=== PATIENT | male | born 1940 | race Caucasian/White ===

== ENCOUNTER → 2023-06-06 10:09 | Outpatient (REF) | payer MEDICARE, BC, SELFPAY ==
[2023-06-06 11:57] LABS: % Basophils 1.8 % (0-2); % Eosinophils 7.9 % (0-6); % Immature Granulocytes 0.3 % (0-0.5); % Lymphocytes 26.7 % (20.5-51.1); % Monocytes 11.1 % (1.7-9.3); % Neutrophils 52.2 % (42.2-75.2); Absolute Basophils 0.1 10^3/uL (0-0.2); Absolute Eosinophils 0.5 10^3/uL (0-0.7); Absolute Lymphocytes 1.7 10^3/uL (1.2-3.4); Absolute Monocytes 0.7 10^3/uL (0.1-0.6); Absolute Neutrophils 3.3 10^3/uL (1.4-6.5); Hematocrit 40.9 % (39.0-52.0); Hemoglobin 14.3 g/dL (13.0-18.0); Mean Corpuscular Hgb 35.7 pg (27.0-31.0); Nucleated Red Blood Cells % 0 % (-); Platelet Count 168 10^3/uL (130-400); Red Blood Cell Count 4.01 10^6/uL (4.70-6.10); Red Cell Dist. Width 12.1 % (11.5-14.5); White Blood Cell Count 6.2 10^3/uL (4.8-10.8)
[2023-06-06 12:06] LABS: ALT (SGPT) 20 U/L (0-50); AST (SGOT) 31 U/L (17-59); Albumin 3.8 g/dl (3.5-5.0); Alkaline Phosphatase 55 U/L (38-126); Blood Urea Nitrogen 17 mg/dl (9-20); Calcium 9.5 mg/dl (8.4-10.2); Carbon Dioxide 28 mmol/L (22-30); Chloride 102 mmol/L (98-107); Glucose 113 mg/dl (70-99); HDL Cholesterol 52 mg/dl; LDL Cholesterol, Calculated 54 mg/dl; Sodium 138 mmol/L (135-145); Total Cholesterol 144 mg/dl (50-199); Total Protein 6.6 g/dl (6.3-8.2); Triglyceride 190 mg/dl (10-149); Very Low Density Lipoprotein 38 mg/dl (0-30); eGFR > 60.00
[2023-06-07 11:06] LABS: Glycohemoglobin (HgbA1c) 5.7 % (4.0-5.6)
== END ==
LOC: HWLAB 10:09
PROVIDERS: ATTENDING PHYSICIAN Family Medicine; REFERRING PHYSICIAN Internal Medicine Cardiovascular Disease
DX: I10 Essential (primary) hypertension (principal); Z80.42 Family history of malignant neoplasm of prostate; R73.9 Hyperglycemia, unspecified; E66.01 Morbid (severe) obesity due to excess calories
CPT/HCPCS: 36415; 80053; 80061; 83036; 85025

== ENCOUNTER → 2024-02-17 09:30 | Outpatient (REF) | payer MEDICARE, BC, SELFPAY ==
[2024-02-17 11:27] LABS: Blood Urea Nitrogen 16 mg/dl (9-20); Calcium 9.6 mg/dl (8.4-10.2); Carbon Dioxide 30 mmol/L (22-30); Chloride 102 mmol/L (98-107); Glucose 110 mg/dl (70-99); Potassium 3.9 mmol/L (3.5-5.1); Sodium 142 mmol/L (135-145); eGFR > 60.00
== END ==
LOC: HWLAB 09:30
PROVIDERS: ATTENDING PHYSICIAN Family Medicine; REFERRING PHYSICIAN Internal Medicine Cardiovascular Disease
DX: I10 Essential (primary) hypertension (principal); R73.03 Prediabetes; R73.9 Hyperglycemia, unspecified
CPT/HCPCS: 36415; 80048

== ENCOUNTER → 2024-10-01 11:08 | Outpatient (REF) | payer MEDICARE, BC, SELFPAY ==
[2024-10-01 13:25] LABS: Albumin 4.5 g/dl (3.5-5.0); Blood Urea Nitrogen 20 mg/dl (9-20); Calcium 9.7 mg/dl (8.4-10.2); Carbon Dioxide 28 mmol/L (22-30); Chloride 106 mmol/L (98-107); Glucose 112 mg/dl (70-99); Phosphorus 3.2 mg/dl (2.5-4.5); Potassium 3.8 mmol/L (3.5-5.1); Sodium 142 mmol/L (135-145); eGFR > 60.00
[2024-10-01 13:53] LABS: TSH Reflex To Free T4 3.94 uIU/ml (0.47-4.68)
== END ==
LOC: HWLAB 11:08
PROVIDERS: ATTENDING PHYSICIAN Internal Medicine Cardiovascular Disease; FAMILY PHYSICIAN Family Medicine
DX: I25.10 Atherosclerotic heart disease of native coronary artery without angina pectoris (principal); R73.03 Prediabetes; E78.5 Hyperlipidemia, unspecified; C43.30 Malignant melanoma of unspecified part of face; I48.0 Paroxysmal atrial fibrillation; R53.82 Chronic fatigue, unspecified; R60.0 Localized edema
CPT/HCPCS: 36415; 80069; 84443

== ENCOUNTER → 2024-10-05 08:28 | Outpatient (REF) | payer MEDICARE, BC, SELFPAY | LOC: RCS 08:28 | PROVIDERS: ATTENDING PHYSICIAN Internal Medicine Cardiovascular Disease; FAMILY PHYSICIAN Family Medicine | DX: I25.10 Atherosclerotic heart disease of native coronary artery without angina pectoris (principal); I10 Essential (primary) hypertension; R73.03 Prediabetes; E78.5 Hyperlipidemia, unspecified; I48.0 Paroxysmal atrial fibrillation; R53.82 Chronic fatigue, unspecified; E66.9 Obesity, unspecified; R60.0 Localized edema | CPT/HCPCS: 93306 ==

== ENCOUNTER → 2025-02-17 10:44 | Outpatient (REF) | payer MEDICARE, BC, SELFPAY | LOC: HWRAD 10:44 | PROVIDERS: ATTENDING PHYSICIAN Family Medicine | DX: Z23 Encounter for immunization (principal); J45.909 Unspecified asthma, uncomplicated | CPT/HCPCS: 71046 ==